=== PATIENT | female | born 1975 | race American Indian/Alaskan Native ===

== ENCOUNTER 2020-08-29 09:57 | Emergency (ER) | payer OTHER ==
[2020-08-29 10:14] VITALS: BP 131/80
[2020-08-29 11:29] LABS: Basophils # (Auto) 0.1 K/mm3 (0.0-0.1); Basophils % (Auto) 0.9 % (0.0-1.8); Eosinophils # (Auto) 0.1 K/mm3 (0.0-0.4); Eosinophils % (Auto) 0.5 % (0.0-4.3); Hematocrit 37.3 % (30.3-42.9); Hemoglobin 12.7 gm/dl (10.1-14.3); Lymphocytes # (Auto) 1.4 K/mm3 (1.2-5.4); Lymphocytes % (Auto) 12.3 % (13.4-35.0); Mean Corpuscular HGB Conc 34 % (30-34); Mean Corpuscular Volume 94 fl (79-97); Monocytes # (Auto) 1.3 K/mm3 (0.0-0.8); Monocytes % (Auto) 11.3 % (0.0-7.3); Platelet Count 228 K/mm3 (140-440); Red Blood Count 3.97 M/mm3 (3.65-5.03); Red Cell Distribution Width 16.8 % (13.2-15.2)
[2020-08-29 11:48] LABS: Alanine Aminotransferase 13 units/L (7-56); Albumin 3.7 g/dL (3.9-5); Blood Urea Nitrogen 5 mg/dL (7-17); Calcium 8.9 mg/dL (8.4-10.2); Hemolysis Index 11
[2020-08-29 11:55] LABS: BUN/Creatinine Ratio 8
--- NOTE | 2020-08-29 12:24 | XRay Report ---
CHEST 2 VIEWS INDICATION / CLINICAL INFORMATION: SOB, hx COVID. COMPARISON: None available. FINDINGS: SUPPORT DEVICES: None. HEART / MEDIASTINUM: No significant abnormality. LUNGS / PLEURA: No significant pulmonary or pleural abnormality. No pneumothorax. ADDITIONAL FINDINGS: No significant additional findings. IMPRESSION: 1. No acute findings. Signer Name: Russell Worley MD Signed: 08/29/2020 11:05 AM Workstation Name: [id number]
--- NOTE | 2020-08-29 13:41 | Emergency Department Report ---
<JACQUES PAGAN - Last Filed: 08/29/20 16:50> ED General Adult HPI - General Chief complaint: Dyspnea/Respdistress Stated complaint: FEVER,COUGHING Time Seen by Provider: 08/29/20 13:06 Source: patient Mode of arrival: Ambulatory Limitations: No Limitations - History of Present Illness Initial comments: Is a very pleasant 45-year-old female presents the emergency department chief complaint of left-sided flank pain that is worse with deep breaths and movement, chills, shortness of breath that started this morning. She reports she tested positive for COVID-19 on July 15 which was a month and a half ago and she is those symptoms resolved and then she started to feel the symptoms few days ago. She denies any associated fevers, night sweats, headache, dizziness, blurry vision, nausea, vomiting, diarrhea, chest pain,, weakness or any other associated symptoms. - Related Data Previous Rx's Medication Instructions Recorded Last Taken Type Loratadine (Nf) [Claritin] 10 mg PO DAILY #15 tablet 06/02/14 Unknown Rx Ranitidine HCl [Zantac] 300 mg PO QDAY #15 tab 06/02/14 Unknown Rx diphenhydrAMINE [Benadryl] 50 mg PO Q8HR PRN #12 capsule 06/02/14 Unknown Rx Albuterol Mdi (or & Nicu Only) 1 puff IH QID PRN #8.5 gram 08/29/20 Unknown Rx [ProAir HFA Inhaler] predniSONE [Deltasone] 40 mg PO QDAY #10 tab 08/29/20 Unknown Rx Allergies Allergy/AdvReac Type Severity Reaction Status Date / Time No Known Allergies Allergy Unverified 06/02/14 17:10 ED Review of Systems Comment: All other systems reviewed and negative Constitutional: see HPI, chills, malaise. denies: fever Eyes: denies: eye pain, eye discharge, vision change ENT: denies: ear pain, throat pain Respiratory: see HPI, shortness of breath. denies: cough, wheezing Cardiovascular: denies: chest pain, palpitations Endocrine: no symptoms reported Gastrointestinal: denies: abdominal pain, nausea, diarrhea Genitourinary: denies: urgency, dysuria, discharge Musculoskeletal: as per HPI, back pain. denies: joint swelling, arthralgia Skin: denies: rash, lesions Neurological: denies: headache, weakness, paresthesias Psychiatric: denies: anxiety, depression Hematological/Lymphatic: denies: easy bleeding, easy bruising ED Past Medical Hx - Past Medical History Previous Medical History?: Yes Hx Arthritis: No Hx Psychiatric Treatment: Yes Additional medical history: depression - Surgical History Past Surgical History?: Yes Additional Surgical History: toe, foot - Social History Smoking Status: Never Smoker - Medications Home Medications: Home Medications Medication Instructions Recorded Confirmed Last Taken Type Loratadine (Nf) [Claritin] 10 mg PO DAILY #15 tablet 06/02/14 Unknown Rx Ranitidine HCl [Zantac] 300 mg PO QDAY #15 tab 06/02/14 Unknown Rx diphenhydrAMINE [Benadryl] 50 mg PO Q8HR PRN #12 capsule 06/02/14 Unknown Rx Albuterol Mdi (or & Nicu Only) 1 puff IH QID PRN #8.5 gram 08/29/20 Unknown Rx [ProAir HFA Inhaler] predniSONE [Deltasone] 40 mg PO QDAY #10 tab 08/29/20 Unknown Rx ED Physical Exam - General Limitations: No Limitations General appearance: alert, in no apparent distress - Head Head exam: Present: atraumatic, normocephalic - Eye Eye exam: Present: normal appearance, PERRL, EOMI Pupils: Present: normal accommodation - ENT ENT exam: Present: normal exam, normal orophraynx, mucous membranes moist, TM's normal bilaterally - Neck Neck exam: Present: normal inspection, full ROM. Absent: tenderness, meningismus - Respiratory Respiratory exam: Present: normal lung sounds bilaterally. Absent: respiratory distress, wheezes, rales, rhonchi, stridor - Cardiovascular Cardiovascular Exam: Present: regular rate, normal rhythm, normal heart sounds. Absent: systolic murmur, diastolic murmur, rubs, gallop - GI/Abdominal GI/Abdominal exam: Present: soft, normal bowel sounds. Absent: distended, tenderness, guarding, rebound, rigid - Extremities Exam Extremities exam: Present: normal inspection, full ROM, normal capillary refill. Absent: tenderness, calf tenderness (No posterior calf tenderness, no lower extremity edema, negative Homans' sign bilaterally) - Back Exam Back exam: Present: normal inspection, full ROM, CVA tenderness (L). Absent: tenderness, CVA tenderness (R) - Neurological Exam Neurological exam: Present: alert, oriented X3, CN II-XII intact, normal gait - Psychiatric Psychiatric exam: Present: normal affect, normal mood - Skin Skin exam: Present: warm, dry, intact, normal color. Absent: rash - Procedure Description Procedures done: Ultrasound-guided IV. After verbal consent was obtained I cleaned the skin with alcohol. A tourniquet was applied to the left upper arm. Ultrasound guidance was used to identify a superficial vein in the left antecubital area. There was no pulsatile features and this vessel easily compressed on ultrasound confirming this was venous. I used a long 18 needle and IV. The IV was inserted into the lumen of the vessel and showed immediate dark blood return. This is nonpulsatile. INT Was placed in the IV was secured with tape and Tegaderm. Patient tolerated the procedure well. Less than 5 mL of blood loss. ED Medical Decision Making - Lab Data Result diagrams: 08/29/20 10:56 08/29/20 10:56 Lab Results 08/29/20 08/29/20 08/29/20 Range/Units 10:56 10:56 10:56 WBC 11.5 H (4.5-11.0) K/mm3 RBC 3.97 (3.65-5.03) M/mm3 Hgb 12.7 (10.1-14.3) gm/dl Hct 37.3 (30.3-42.9) % MCV 94 (79-97) fl MCH 32 (28-32) pg MCHC 34 (30-34) % RDW 16.8 H (13.2-15.2) % Plt Count 228 (140-440) K/mm3 Lymph % (Auto) 12.3 L (13.4-35.0) % Adams % (Auto) 11.3 H (0.0-7.3) % Eos % (Auto) 0.5 (0.0-4.3) % Baso % (Auto) 0.9 (0.0-1.8) % Lymph # (Auto) 1.4 (1.2-5.4) K/mm3 Adams # (Auto) 1.3 H (0.0-0.8) K/mm3 Eos # (Auto) 0.1 (0.0-0.4) K/mm3 Baso # (Auto) 0.1 (0.0-0.1) K/mm3 Seg Neutrophils % 75.0 H (40.0-70.0) % Seg Neutrophils # 8.6 H (1.8-7.7) K/mm3 D-Dimer (0-234) ng/mlDDU Sodium 135 L (137-145) mmol/L Potassium 3.7 (3.6-5.0) mmol/L Chloride 104.4 (98-107) mmol/L Carbon Dioxide 21 L (22-30) mmol/L Anion Gap 13 mmol/L BUN 5 L (7-17) mg/dL Creatinine 0.6 (0.6-1.2) mg/dL Estimated GFR > 60 ml/min BUN/Creatinine Ratio 8 % Glucose 91 (65-100) mg/dL Calcium 8.9 (8.4-10.2) mg/dL Total Bilirubin 0.70 (0.1-1.2) mg/dL AST 14 (5-40) units/L ALT 13 (7-56) units/L Alkaline Phosphatase 65 (35-129) units/L Troponin T < 0.010 (0.00-0.029) ng/mL NT-Pro-B Natriuret Pep 64.73 (0-450) pg/mL Total Protein 7.2 (6.3-8.2) g/dL Albumin 3.7 L (3.9-5) g/dL Albumin/Globulin Ratio 1.1 % 08/29/ Range/Units 14:03 WBC (4.5-11.0) K/mm3 RBC (3.65-5.03) M/mm3 Hgb (10.1-14.3) gm/dl Hct (30.3-42.9) % MCV (79-97) fl MCH (28-32) pg MCHC (30-34) % RDW (13.2-15.2) % Plt Count (140-440) K/mm3 Lymph % (Auto) (13.4-35.0) % Adams % (Auto) (0.0-7.3) % Eos % (Auto) (0.0-4.3) % Baso % (Auto) (0.0-1.8) % Lymph # (Auto) (1.2-5.4) K/mm3 Adams # (Auto) (0.0-0.8) K/mm3 Eos # (Auto) (0.0-0.4) K/mm3 Baso # (Auto) (0.0-0.1) K/mm3 Seg Neutrophils % (40.0-70.0) % Seg Neutrophils # (1.8-7.7) K/mm3 D-Dimer 416.91 H (0-234) ng/mlDDU Sodium (137-145) mmol/L Potassium (3.6-5.0) mmol/L Chloride (98-107) mmol/L Carbon Dioxide (22-30) mmol/L Anion Gap mmol/L BUN (7-17) mg/dL Creatinine (0.6-1.2) mg/dL Estimated GFR ml/min BUN/Creatinine Ratio % Glucose (65-100) mg/dL Calcium (8.4-10.2) mg/dL Total Bilirubin (0.1-1.2) mg/dL AST (5-40) units/L ALT (7-56) units/L Alkaline Phosphatase (35-129) units/L Troponin T (0.00-0.029) ng/mL NT-Pro-B Natriuret Pep (0-450) pg/mL Total Protein (6.3-8.2) g/dL Albumin (3.9-5) g/dL Albumin/Globulin Ratio % - Radiology Data Radiology results: report reviewed, image reviewed XRay Report Signed Patient: OSCAR SEGOVIA MR#: [id number] : 1975 Acct:[id number] Age/Sex: 45 / F ADM Date: 08/29/20 Loc: ED Attending Dr: Ordering Physician: ED MD SHANNON Date of Service: 08/29/20 Procedure(s): XR chest routine 2V Accession Number(s): [id number] cc: ED MD SHANNON Fluoro Time In Minutes: CHEST 2 VIEWS INDICATION / CLINICAL INFORMATION: SOB, hx COVID. COMPARISON: None available. FINDINGS: SUPPORT DEVICES: None. HEART / MEDIASTINUM: No significant abnormality. LUNGS / PLEURA: No significant pulmonary or pleural abnormality. No pneumothorax. ADDITIONAL FINDINGS: No significant additional findings. IMPRESSION: 1. No acute findings. Signer Name: Russell Worley MD Signed: 08/29/2020 11:05 AM Workstation Name: [id number] Transcribed By: TL Dictated By: Russell Worley MD Electronically Authenticated By: Russell Worley MD Signed Date/Time: 08/29/20 1105 - Medical Decision Making Patient nontoxic in no acute distress. Vital signs are stable. She was slightly tachycardic when she arrived and was complaining of some pain when she took a deep breath in her upper back. D-dimer was ordered and elevated. CTA was ordered. The patient was a difficult IV and I put an 18-gauge ultrasound- guided IV in the left AC. Patient tolerated this well. Her labs were relatively unremarkable. She will be signed out to colleague Florencio AVINA pending CT read, urinalysis and dispo. - Differential Diagnosis pneumonia, COVID-19, PE ED Disposition Clinical Impression: SOB (shortness of breath), Normal chest CT, Chest pain Disposition: DC- TO HOME OR SELFCARE Condition: Stable Instructions: Shortness of Breath, Adult, Tvue-de-Tnag, Cough, Adult, Pivk-ue-Ydut, Nonspecific Chest Pain, Adult, Chest Pain (ED) Prescriptions: predniSONE [Deltasone] 40 mg PO QDAY #10 tab Albuterol Mdi (or & Nicu Only) [ProAir HFA Inhaler] 1 puff IH QID PRN #8.5 gram PRN Reason: shortness of breath Referrals: PRIMARY CAREMD [Primary Care Provider] - 3-5 Days DENICE FAN MD [Staff Physician] - 3-5 Days <JULIA LEBLANC - Last Filed: 09/07/20 22:23> ED Review of Systems ROS: Stated complaint: FEVER,COUGHING Other details as noted in HPI ED Course Vital Signs 08/29/20 08/29/20 10:13 20:50 Temperature 98.9 F Pulse Rate 107 H 94 H Respiratory 22 17 Rate Blood Pressure 131/80 [Right] O2 Sat by Pulse 98 98 Oximetry ED Medical Decision Making - Lab Data Result diagrams: 08/29/20 10:56 08/29/20 10:56 - Medical Decision Making Ms. Flores is a 45-year-old female was evaluated by my colleague Jacques Arce with a suspicion for reactive airway process. CT scan of the chest was obtained due to a elevated dimer and tachycardia to rule out pulmonary embolism and yielded the following results: [facility] [address] [place] [address] Cat Scan Report Signed Patient: OSCAR SEGOVIA MR#: [id number] : 1975 Acct:[id number] Age/Sex: 45 / F ADM Date: 08/29/20 Loc: ED Attending Dr: Ordering Physician: STEPHANIE MA Date of Service: 08/29/20 Procedure(s): CT angio chest Accession Number(s): [id number] cc: STEPHANIE MA CT angio chest INDICATION / CLINICAL INFORMATION: pleuritic chest pain, tachycardia, elevated D-dime. TECHNIQUE: Axial CT images were obtained after injection of 100 cc of Omnipaque 350 IV contrast using CTA protocol. 3 plane MIP / 3D reconstructions were produced. All CT scans at this location are performed using CT dose reduction for ALARA by means of automated exposure control. COMPARISON: None available. FINDINGS: Following the administration of intravenous contrast, no filling defects are seen in the main pulmonary arteries or their branches. No significant parenchymal abnormality is seen in the lungs. No enlarged mediastinal or hilar lymph nodes are identified. No significant skeletal abnormality is seen. IMPRESSION: No evidence of pulmonary embolus. Negative CTA of the chest Signer Name: Ten Fountain MD FACR Signed: 08/29/2020 6:42 PM Workstation Name: [id number] Transcribed By: MS Dictated By: Ten Fountain MD Electronically Authenticated By: Ten Fountain MD Signed Date/Time: 08/29/201841 DD/ 38 TD/TT: She has maintained hemoglobin hemodynamically stable throughout her entire visit. She is tolerating oral. She is ambulatory with no with no limitation she did have a mild possible reaction to the contrast having a what she describes abnormal sensation to his central chest lasting for about 30 minutes following the contrast although she states she has had a contrast a couple times in the past due to a cardiac nuclear medicine eval. At this discussed the fi ndings with Siddhartha whom advised him of his plan to discharge patient home with inhaler and steroids as her status in an condition has not worsened since hand off Critical care attestation.: If time is entered above; I have spent that time in minutes in the direct care of this critically ill patient, excluding procedure time. ED Disposition Is pt being admited?: No Does the pt Need Aspirin: No
[2020-08-29 17:53] LABS: Bilirubin,Urine NEG (Negative); Blood,Urine LG (Negative); Color,Urine Yellow (Yellow); Mucus,Urine FEW /HPF
[2020-08-29 17:55] LABS: RBC,Urine > 182.0 /HPF (0.0-6.0); WBC,Urine > 182.0 /HPF (0.0-6.0)
[2020-08-29 18:06] LABS: HCG Qualitative,Urine Negative (Negative)
--- NOTE | 2020-08-29 18:43 | Cat Scan Report ---
CT angio chest INDICATION / CLINICAL INFORMATION: pleuritic chest pain, tachycardia, elevated D-dime. TECHNIQUE: Axial CT images were obtained after injection of 100 cc of Omnipaque 350 IV contrast using CTA protoc ol. 3 plane MIP / 3D reconstructions were produced. All CT scans at this location are performed using CT dose reduction for ALARA by means of automated exposure control. COMPARISON: None available. FINDINGS: Following the administration of intravenous contrast, no filling defects are seen in the main pulmona ry arteries or their branches. No significant parenchymal abnormality is seen in the lungs. No enlarg ed mediastinal or hilar lymph nodes are identified. No significant skeletal abnormality is seen. IMPRESSION: No evidence of pulmonary embolus. Negative CTA of the chest Signer Name: Ten Fountain MD FACR Signed: 08/29/2020 6:42 PM Workstation Name: [id number]
== END 2020-08-29 20:50 | disposition home or self-care (01) ==
LOC: ED 09:57
DX: R06.02 Shortness of breath (principal); R07.9 Chest pain, unspecified; F32.9 Major depressive disorder, single episode, unspecified; Z79.899 Other long term (current) drug therapy; Z98.890 Other specified postprocedural states
CPT/HCPCS: 36415; 36569; 71046; 71275; 80053; 81001; 81025; 83880; 84484; 85025; 85379; 99284; Q9967